=== PATIENT | female | born 1965 | race Two or more races ===

== ENCOUNTER 2018-11-02 11:56 | Emergency (ER) | payer OTHER ==
[~2018-11-02] VITALS: Ht 165.1 cm; Wt 85.7 kg
[2018-11-02 12:02] VITALS: Ht 165.1 cm; Wt 85.7 kg
[2018-11-02 12:39] LABS: BASOPHIL % 0.6 % (0-2); PLATELET COUNT 312 x10^3mcL (130-400)
[2018-11-02 12:48] LABS: CALCIUM 8.9 mg/dL (8.5-10.1); CARBON DIOXIDE 31.4 mmol/L (21-32); CHLORIDE SERUM 101 mmol/L (98-107); CREATININE SERUM 0.7 mg/dL (0.6-1.0); GFR1 > 60 mL/min; GLUCOSE SERUM 171 mg/dL (74-106); POTASSIUM SERUM 3.6 mmol/L (3.5-5.1); SODIUM SERUM 138 mmol/L (136-145)
[2018-11-02 12:50] LABS: ALBUMIN 3.9 g/dL (3.4-5.0); ALKALINE PHOSPHATASE 83 U/L (46-116); ALT/SGPT 24 U/L (14-59); AST/SGOT 24 U/L (15-37); BILIRUBIN TOTAL 0.58 mg/dL (0.20-1.00); LIPASE 257 IU/L (73-393); TOTAL PROTEIN, SERUM 7.8 g/dL (6.4-8.2)
[2018-11-02 14:08] VITALS: BP 157/99
== END 2018-11-02 14:27 | disposition home or self-care (01) ==
LOC: ED 11:56
PROVIDERS: Emergency Medicine
DX: R07.81 Pleurodynia (principal); I10 Essential (primary) hypertension; E11.9 Type 2 diabetes mellitus without complications
CPT/HCPCS: 36415; 85378; J1885

== ENCOUNTER 2020-10-07 00:49 | Emergency (ER) | payer MEDICAID ==
[~2020-10-07] VITALS: Ht 167.6 cm; Wt 83.9 kg
[2020-10-07 01:06] VITALS: Ht 167.6 cm; Wt 83.9 kg
[2020-10-07 01:46] LABS: PLATELET COUNT 365 x10^3mcL (179-408)
[2020-10-07 01:48] LABS: RED CELL DISTRIBUTION WIDTH 16.2 % (12.3-17.7)
[2020-10-07 01:51] LABS: CALCIUM 8.7 mg/dL (8.5-10.1); CARBON DIOXIDE 25.9 mmol/L (21-32); CHLORIDE SERUM 99 mmol/L (98-107); CREATININE SERUM 0.8 mg/dL (0.6-1.0); GFR1 > 60 mL/min; GLUCOSE SERUM 255 mg/dL (74-106); SODIUM SERUM 137 mmol/L (136-145)
[2020-10-07 01:56] LABS: ALBUMIN 3.7 g/dL (3.4-5.0); ALKALINE PHOSPHATASE 93 U/L (46-116); ALT/SGPT 39 U/L (14-59); AST/SGOT 37 U/L (15-37); BILIRUBIN TOTAL 0.33 mg/dL (0.20-1.00); TOTAL PROTEIN, SERUM 7.7 g/dL (6.4-8.2)
[2020-10-07 02:23] LABS: microscopic required? YES; urine erythrocyte NEGATIVE (NEGATIVE)
[2020-10-07 05:35] VITALS: BP 128/93
== END 2020-10-07 06:12 | disposition home or self-care (01) ==
LOC: ED 00:49
PROVIDERS: Emergency Medicine
DX: F41.9 Anxiety disorder, unspecified (principal); R11.0 Nausea; I10 Essential (primary) hypertension; E11.9 Type 2 diabetes mellitus without complications
CPT/HCPCS: 82962; J2060; J7030

== ENCOUNTER 2020-10-09 00:19 | Emergency (ER) | payer MEDICAID ==
[~2020-10-09] VITALS: Ht 167.6 cm; Wt 83.5 kg
[2020-10-09 00:35] VITALS: Ht 167.6 cm; Wt 83.5 kg
[2020-10-09] MEDS ORDERED: LIPI20 (00:55)
[2020-10-09] MEDS ORDERED: EUTHYROX112 MCG PO (00:57)
[2020-10-09] MEDS ORDERED: FORTAMET1000 MG (00:57)
[2020-10-09] MEDS ORDERED: LEVO-T112 MCG (00:57)
[2020-10-09] MEDS ORDERED: JANUVIA100 M1 PO (01:05)
[2020-10-09] MEDS ORDERED: GLIPIZIDE XL5 M2 (01:05)
[2020-10-09] MEDS ORDERED: HYDRALAZINE HCL25 MG (01:06)
[2020-10-09] MEDS ORDERED: LISINOPRIL-HYDR1 TA3 (01:06)
[2020-10-09] MEDS ORDERED: AMLODIPINE BESY10 M2 (01:06)
[2020-10-09 01:41] LABS: BASOPHIL % 0.9 % (0.2-1.3); PLATELET COUNT 385 x10^3mcL (179-408)
[2020-10-09 01:48] LABS: RED CELL DISTRIBUTION WIDTH 16.1 % (12.3-17.7)
[2020-10-09 01:58] LABS: CALCIUM 9.4 mg/dL (8.5-10.1); CARBON DIOXIDE 27.7 mmol/L (21-32); CHLORIDE SERUM 99 mmol/L (98-107); CREATININE SERUM 0.8 mg/dL (0.6-1.0); GFR1 > 60 mL/min; GLUCOSE SERUM 182 mg/dL (74-106); POTASSIUM SERUM 3.9 mmol/L (3.5-5.1); SODIUM SERUM 136 mmol/L (136-145)
[2020-10-09 02:03] LABS: ALBUMIN 4.1 g/dL (3.4-5.0); ALKALINE PHOSPHATASE 98 U/L (46-116); ALT/SGPT 43 U/L (14-59); AST/SGOT 34 U/L (15-37); BILIRUBIN TOTAL 0.43 mg/dL (0.20-1.00)
[2020-10-09 02:04] LABS: TOTAL PROTEIN, SERUM 8.5 g/dL (6.4-8.2)
[2020-10-09 02:12] LABS: T4(THYROXINE) 13.7 ug/dL (4.7-13.3)
[2020-10-09 03:57] VITALS: BP 129/88
== END 2020-10-09 03:57 | disposition home or self-care (01) ==
LOC: ED 00:19
PROVIDERS: Emergency Medicine
DX: T38.1X5A Adverse effect of thyroid hormones and substitutes, initial encounter (principal); F41.9 Anxiety disorder, unspecified; G47.00 Insomnia, unspecified; R42 Dizziness and giddiness; I10 Essential (primary) hypertension; E11.9 Type 2 diabetes mellitus without complications; E03.9 Hypothyroidism, unspecified; E78.00 Pure hypercholesterolemia, unspecified; Y92.89 Other specified places as the place of occurrence of the external cause
CPT/HCPCS: J2060; J2765; J8597

== ENCOUNTER 2020-10-11 00:58 | Emergency (ER) | payer MEDICAID ==
[~2020-10-11] VITALS: Ht 167.6 cm; Wt 82.6 kg
[~2020-10-11 00:58] MED LIST: AMLODIPINE BESY10 M2; EUTHYROX112 MCG PO; FORTAMET1000 MG; GLIPIZIDE XL5 M2; HYDRALAZINE HCL25 MG; JANUVIA100 M1 PO; LEVO-T112 MCG; LIPI20; LISINOPRIL-HYDR1 TA3
[2020-10-11 01:09] VITALS: Ht 167.6 cm; Wt 82.6 kg
[2020-10-11 03:18] LABS: CALCIUM 8.8 mg/dL (8.5-10.1); CARBON DIOXIDE 26.7 mmol/L (21-32); CHLORIDE SERUM 100 mmol/L (98-107); CREATININE SERUM 0.9 mg/dL (0.6-1.0); GFR1 > 60 mL/min; GLUCOSE SERUM 156 mg/dL (74-106); POTASSIUM SERUM 4.3 mmol/L (3.5-5.1); SODIUM SERUM 135 mmol/L (136-145)
[2020-10-11 03:22] LABS: BASOPHIL % 0.8 % (0.2-1.3); PLATELET COUNT 388 x10^3mcL (179-408)
[2020-10-11 03:31] LABS: ALBUMIN 3.8 g/dL (3.4-5.0); ALKALINE PHOSPHATASE 90 U/L (46-116); ALT/SGPT 43 U/L (14-59); AST/SGOT 39 U/L (15-37); BILIRUBIN TOTAL 0.54 mg/dL (0.20-1.00); FREE T4 1.19 ng/dL (0.76-1.46); TOTAL PROTEIN, SERUM 7.9 g/dL (6.4-8.2)
[2020-10-11 03:33] LABS: RED CELL DISTRIBUTION WIDTH 16.1 % (12.3-17.7); rbc morphology (normal/abnorm) NORMAL (NORMAL)
[2020-10-11] MEDS ORDERED: XANAX0.25 MG PO ×2 (05:35→05:36)
[2020-10-11 05:49] VITALS: BP 120/75
== END 2020-10-11 05:49 | disposition home or self-care (01) ==
LOC: ED 00:58
PROVIDERS: Student in an Organized Health Care Education/Training Program
DX: U07.1 COVID-19 (principal); F41.9 Anxiety disorder, unspecified; G47.00 Insomnia, unspecified; I10 Essential (primary) hypertension; E11.9 Type 2 diabetes mellitus without complications; E03.9 Hypothyroidism, unspecified; E78.00 Pure hypercholesterolemia, unspecified
CPT/HCPCS: 84439